=== PATIENT | female | born 1985 | race Caucasian/White ===

== ENCOUNTER 2018-11-20 20:29 | Emergency (ER) | payer OTHER ==
[2018-11-20 20:47] VITALS: BP 118/75; PULSE 99; RESP 20; TEMP 98.5
--- NOTE | 2018-11-20 21:13 | ED ---
General Adult HPI - General Chief complaint: Dental/Oral Stated complaint: tooth extracted, swelling Time Seen by Provider: 11/20/18 20:50 Source: patient, RN notes reviewed Mode of arrival: ambulatory Limitations: no limitations - History of Present Illness Initial comments: 33-year-old female presents to the emergency department for a chief complaint of dental pain. Patient states she had her tooth extracted 1.5 weeks ago. She states it has been painful since that time. Patient states she has noticed purulent drainage. She called her primary provider who sent an antibiotic to the pharmacy but the pharmacy claimed he did not receive this. She was unable to see her dentist. Patient states she presents for antibiotic. She denies any fevers or chills. She denies any difficulty opening the mouth. She denies any sublingual swelling or pain. Patient has no other complaints at this time including shortness of breath, chest pain, abdominal pain, nausea or vomiting, headache, or visual changes. - Related Data Home Medications Medication Instructions Recorded Confirmed ALPRAZolam [Xanax] 1 mg PO Q8HR PRN 10/13/16 10/13/16 Sertraline HCl [Zoloft] 50 mg PO DAILY 10/13/16 10/13/16 Previous Rx's Medication Instructions Recorded Clindamycin [Cleocin] 450 mg PO Q8H 10 Days capsule 11/20/18 Allergies Allergy/AdvReac Type Severity Reaction Status Date / Time hydromorphone HCl Allergy Rash/Hives Verified 11/20/18 20:46 [From Dilaudid] Penicillins Allergy Rash/Hives Verified 11/20/18 20:46 tramadol HCl [From Ultram] Allergy Confusion Verified 11/20/18 20:46 Review of Systems ROS Statement: Those systems with pertinent positive or pertinent negative responses have been documented in the HPI. ROS Other: All systems not noted in ROS Statement are negative. Past Medical History Past Medical History: No Reported History History of Any Multi-Drug Resistant Organisms: MRSA Date of last positivie culture/infection: 2009 MDRO Source:: buttock Additional Past Surgical History / Comment(s): right arm, pilonidal cyst Past Psychological History: No Psychological Hx Reported Smoking Status: Current every day smoker Past Alcohol Use History: Rare Past Drug Use History: Marijuana General Exam Limitations: no limitations General appearance: alert, in no apparent distress Head exam: Present: atraumatic, normocephalic, normal inspection Eye exam: Present: normal appearance, PERRL, EOMI. Absent: scleral icterus, conjunctival injection, periorbital swelling ENT exam: Present: mucous membranes moist, TM's normal bilaterally. Absent: normal oropharynx (Extraction of tooth 28 and 29 noted. Minimal edema with no drainage noted at this time) Neck exam: Present: normal inspection, full ROM. Absent: tenderness, meningismus, lymphadenopathy Respiratory exam: Present: normal lung sounds bilaterally. Absent: respiratory distress, wheezes, rales, rhonchi, stridor Cardiovascular Exam: Present: regular rate, normal rhythm, normal heart sounds. Absent: systolic murmur, diastolic murmur, rubs, gallop, clicks Neurological exam: Present: alert, oriented X3, CN II-XII intact Psychiatric exam: Present: normal affect, normal mood Course Vital Signs 11/20/18 20:44 Temperature 98.5 F Pulse Rate 99 Respiratory 20 Rate Blood Pressure 118/75 O2 Sat by Pulse 99 Oximetry Medical Decision Making - Medical Decision Making 33-year-old female presents for dental pain. This has been ongoing for the past few days. Patient states she is supposed to have an antibiotic after a tooth extraction but was unable to get the prescription. Patient states her primary was going to send over clindamycin but the pharmacy did not receive it and now the office is closed. Patient could not follow up with her dentist as they could not fit her in. On exam patient does have extractions noted of tooth 28 and 29. No significant mandibular tenderness. No sublingual swelling or tenderness. Patient is able to open the mouth and handle secretions. Vitals are within except about limits. Patient was given a clindamycin in the emergency department. She was given a prescription of this as well. She will follow up with her dentist and primary care. She will return if she has worsening symptoms. Disposition Clinical Impression: Status post tooth extraction, Tooth pain Disposition: HOME SELF-CARE Condition: Good Instructions: Toothache (ED) Additional Instructions: Please take antibiotics as directed. Please follow-up with primary care and dentist in 1-2 days. Return if you have any worsening symptoms. Prescriptions: Clindamycin [Cleocin] 450 mg PO Q8H 10 Days capsule Is patient prescribed a controlled substance at d/c from ED?: No Referrals: Ashok Sheikh DO [Primary Care Provider] - 1-2 days Time of Disposition: 21:12
[2018-11-20] MEDS ORDERED: CLINDAMYCIN 150 MG CAP PO STA (21:21)
== END 2018-11-20 21:28 | disposition home or self-care (01) ==
LOC: EC 20:29
DX: K08.89 Other specified disorders of teeth and supporting structures (principal); K08.409 Partial loss of teeth, unspecified cause, unspecified class; F17.200 Nicotine dependence, unspecified, uncomplicated; Z86.14 Personal history of Methicillin resistant Staphylococcus aureus infection; Z79.899 Other long term (current) drug therapy; Z88.5 Allergy status to narcotic agent; Z88.0 Allergy status to penicillin
CPT/HCPCS: 99282

== ENCOUNTER 2019-05-30 21:20 | Emergency (ER) | payer OTHER ==
--- NOTE | 2019-05-30 22:41 | ED ---
URI HPI - General Chief Complaint: Upper Respiratory Infection Stated Complaint: Cough Time Seen by Provider: 05/30/19 21:51 Source: patient, RN notes reviewed, old records reviewed Mode of arrival: ambulatory Limitations: no limitations - History of Present Illness Initial Comments: Patient is a 33-year-old female. Alert and oriented. No distress. She presents today with cough, and chin swelling. She states she's had history of dental work history of abscesses. She states she is a smoker. She reports cough with green phelgm. - Related Data Home Medications Medication Instructions Recorded Confirmed ALPRAZolam [Xanax] 1 mg PO Q8HR PRN 10/13/16 10/13/16 Sertraline HCl [Zoloft] 50 mg PO DAILY 10/13/16 10/13/16 Previous Rx's Medication Instructions Recorded Clindamycin [Cleocin] 450 mg PO Q8H 10 Days capsule 11/20/18 Albuterol Inhaler [Ventolin Hfa 1 - 2 puff INHALATION RT-Q6H PRN 05/30/19 Inhaler] #1 inhaler Azithromycin 250 mg PO DIRECTED #6 tablet 05/30/19 Loratadine-Pseudoeph 5-120 mg 1 each PO Q12HR #20 tab 05/30/19 [Claritin-D 12 HR] methylPREDNISolone Dose Pack 4 mg PO DIRECTED #21 package 05/30/19 [Medrol Dose Pack] methylPREDNISolone [Medrol Dose 4 mg PO DIRECTED #1 pack 05/30/19 Pack] Allergies Allergy/AdvReac Type Severity Reaction Status Date / Time hydromorphone HCl Allergy Rash/Hives Verified 05/30/19 21:41 [From Dilaudid] Penicillins Allergy Rash/Hives Verified 05/30/19 21:41 tramadol HCl [From Ultram] Allergy Confusion Verified 05/30/19 21:41 Review of Systems ROS Statement: Those systems with pertinent positive or pertinent negative responses have been documented in the HPI. ROS Other: All systems not noted in ROS Statement are negative. Past Medical History Past Medical History: No Reported History History of Any Multi-Drug Resistant Organisms: MRSA Date of last positivie culture/infection: 2009 MDRO Source:: buttock Additional Past Surgical History / Comment(s): right arm, pilonidal cyst Past Psychological History: No Psychological Hx Reported Smoking Status: Current every day smoker Past Alcohol Use History: Rare Past Drug Use History: Marijuana General Exam - General Exam Comments Initial Comments: This is a 33 year old femae, no distress. Limitations: no limitations General appearance: alert, in no apparent distress Head exam: Present: atraumatic, normocephalic, normal inspection Eye exam: Present: normal appearance, PERRL, EOMI. Absent: scleral icterus, conjunctival injection, periorbital swelling ENT exam: Present: normal exam, normal oropharynx, mucous membranes moist, other (chin swelling) Neck exam: Present: normal inspection. Absent: tenderness, meningismus, lymphadenopathy Respiratory exam: Present: normal lung sounds bilaterally. Absent: respiratory distress, wheezes, rales, rhonchi, stridor Cardiovascular Exam: Present: regular rate, normal rhythm, normal heart sounds. Absent: systolic murmur, diastolic murmur, rubs, gallop, clicks Extremities exam: Present: normal inspection, full ROM, normal capillary refill. Absent: tenderness, pedal edema, joint swelling, calf tenderness Back exam: Present: normal inspection Neurological exam: Present: alert, oriented X3, CN II-XII intact Psychiatric exam: Present: normal affect, normal mood Skin exam: Present: warm, dry, intact, normal color. Absent: rash Course Vital Signs 05/30/19 05/30/19 05/30/19 21:37 21:51 23:21 Temperature 98.1 F 97.7 F Pulse Rate 87 78 Respiratory 18 12 16 Rate Blood Pressure 111/69 101/88 O2 Sat by Pulse 100 98 Oximetry Medical Decision Making - Medical Decision Making 33 year old female for cough and chin swelling. Patient is a smoker. She had CXR showing deformity of left fourth rib and clavicle. Patient informed of results. Possible apical infiltrate. She admits to previous injury when younger. Will treat with azithromycin for bronchitis and possible pneumonia. Will DC with Rx for medrol dose pack as well. All questions answered. - Radiology Data Radiology results: report reviewed X-ray report is age-indeterminate posterior left fourth rib fracture deformity. Possible clavicle deformity. With atypical contusion or other infiltrate. Patient clinically warranted CT to further assess these findings. Disposition Clinical Impression: Bronchitis, Jaw swelling, Lymph nodes enlarged Disposition: HOME SELF-CARE Condition: Good Instructions (If sedation given, give patient instructions): Upper Respiratory Infection (ED) Additional Instructions: Patient is advised to follow-up with your primary care physician. Take medications as prescribed. Return to emergency department if any alarming signs or symptoms occur. Recommend using decongestant medications as well. Prescriptions: Azithromycin 250 mg PO DIRECTED #6 tablet Loratadine-Pseudoeph 5-120 mg [Claritin-D 12 HR] 1 each PO Q12HR #20 tab methylPREDNISolone Dose Pack [Medrol Dose Pack] 4 mg PO DIRECTED #21 package methylPREDNISolone [Medrol Dose Pack] 4 mg PO DIRECTED #1 pack Albuterol Inhaler [Ventolin Hfa Inhaler] 1 - 2 puff INHALATION RT-Q6H PRN #1 inhaler PRN Reason: Shortness Of Breath Is patient prescribed a controlled substance at d/c from ED?: No Referrals: Ashok Sheikh DO [Primary Care Provider] - 1-2 days Time of Disposition: 23:03
[2019-05-30] MEDS ORDERED: AZITHROMYCIN 500 MG TAB PO STA (23:04)
--- NOTE | 2019-05-30 23:16 | XR ---
EXAM: XR Chest, 2 Views CLINICAL HISTORY: ITS.REASON XR Reason: Pain TECHNIQUE: Frontal and lateral views of the chest. COMPARISON: No relevant prior studies available. FINDINGS: There is an age-indeterminate posterior left fourth rib fracture deformity. Question overlying calvarial deformity is well. These were not present previously. I cannot exclude a left apical contusion or other infiltrate. No clear pneumothorax. No pleural effusion. Normal cardiomediastinal contour. IMPRESSION: Age-indeterminate posterior left fourth rib fracture deformity. Possible clavicle deformity. Cannot exclude left apical contusion or other infiltrate. If clinically warranted, CT could further assess these findings.
[2019-05-30 23:22] VITALS: BP 101/88; PULSE 78; RESP 16; TEMP 97.7
== END 2019-05-30 23:22 | disposition home or self-care (01) ==
LOC: EC 21:20
DX: J40 Bronchitis, not specified as acute or chronic (principal); R59.9 Enlarged lymph nodes, unspecified; M95.4 Acquired deformity of chest and rib; F17.200 Nicotine dependence, unspecified, uncomplicated; Z79.899 Other long term (current) drug therapy; Z88.0 Allergy status to penicillin; Z88.5 Allergy status to narcotic agent
CPT/HCPCS: 71046; 99284

== ENCOUNTER 2019-06-21 20:27 | Emergency (ER) | payer OTHER ==
[2019-06-21 20:39] VITALS: BP 120/78; PULSE 82; RESP 20; TEMP 97.8
--- NOTE | 2019-06-21 21:16 | ED ---
General Adult HPI - General Chief complaint: Skin/Abscess/Foreign Body Stated complaint: Bump on chin Time Seen by Provider: 06/21/19 20:41 Source: patient Mode of arrival: ambulatory Limitations: no limitations - History of Present Illness Initial comments: Patient is a 33-year-old female presenting to emergency Department with a chief complaint of pain under the chin. Patient reports she has had multiple dental procedures done over the last 6 months. Patient reports she has developed a mass under her chin that has been coming and going for the past few months. Patient reports she has seen a dentist who suspects that it is a lymph node. Patient reports she has a scheduled ENT appointment 1.5 months from today. Patient reports pain on palpation on the chin. Patient is worried about the cosmetic outlook of the region. Patient denies any fevers, night sweats or chills. Patient denies any drooling, , dysphagia, dyspnea or changes in the voice. - Related Data Home Medications Medication Instructions Recorded Confirmed ALPRAZolam [Xanax] 1 mg PO Q8HR PRN 10/13/16 06/21/19 Sertraline HCl [Zoloft] 50 mg PO DAILY 10/13/16 06/21/19 Previous Rx's Medication Instructions Recorded Albuterol Inhaler [Ventolin Hfa 1 - 2 puff INHALATION RT-Q6H PRN 05/30/19 Inhaler] #1 inhaler Loratadine-Pseudoeph 5-120 mg 1 each PO Q12HR #20 tab 05/30/19 [Claritin-D 12 HR] Clindamycin [Cleocin] 150 mg PO Q6H #20 capsule 06/21/19 Allergies Allergy/AdvReac Type Severity Reaction Status Date / Time hydromorphone HCl Allergy Rash/Hives Verified 05/30/19 21:41 [From Dilaudid] Penicillins Allergy Rash/Hives Verified 05/30/19 21:41 tramadol HCl [From Ultram] Allergy Confusion Verified 05/30/19 21:41 Review of Systems ROS Statement: Those systems with pertinent positive or pertinent negative responses have been documented in the HPI. ROS Other: All systems not noted in ROS Statement are negative. Past Medical History Past Medical History: No Reported History History of Any Multi-Drug Resistant Organisms: MRSA Date of last positivie culture/infection: 2009 MDRO Source:: buttock Additional Past Surgical History / Comment(s): right arm, pilonidal cyst Past Psychological History: No Psychological Hx Reported Smoking Status: Current every day smoker Past Alcohol Use History: Rare Past Drug Use History: Marijuana General Exam Limitations: no limitations General appearance: alert, in no apparent distress Head exam: Present: atraumatic, normocephalic, normal inspection Eye exam: Present: normal appearance, PERRL, EOMI Pupils: Present: normal accommodation ENT exam: Present: normal exam, mucous membranes moist, TM's normal bilaterally. Absent: normal oropharynx (Medical plates on the bottom teeth. No enlarged tonsils or exudates. Uvula midline. No oral lesions noted) Neck exam: Present: normal inspection (Mild edema on the mental. No lacerations, abrasions, edema or skin discoloration), tenderness (Mental te nderness), full ROM, lymphadenopathy (Submental) Respiratory exam: Present: normal lung sounds bilaterally Cardiovascular Exam: Present: regular rate, normal rhythm, normal heart sounds Extremities exam: Present: normal inspection, full ROM Back exam: Present: normal inspection, full ROM Neurological exam: Present: alert, oriented X3 Psychiatric exam: Present: normal affect, normal mood Skin exam: Present: warm, intact, normal color Course Vital Signs 06/21/19 20:36 Temperature 97.8 F Pulse Rate 82 Respiratory 20 Rate Blood Pressure 120/78 O2 Sat by Pulse 99 Oximetry Medical Decision Making - Medical Decision Making Patient is a 33-year-old female presenting to emergency Department with a chief complaint of a pain on her chin. Based on physical examination the left ear appears to be mildly inflamed although it is difficult to determine the exact cause for the mass. X-ray of the mandible was unremarkable. Patient advised to follow-up with ENT for further management. Strict return parameters were thoroughly discussed the patient was understanding and agreeable. Case discussed with physician. Disposition Clinical Impression: Enlarged submental lymph node Disposition: HOME SELF-CARE Condition: Stable Instructions (If sedation given, give patient instructions): Lymph Node Biopsy (DC) Additional Instructions: Please follow up with either dermatology or ENT. Please return to emergency department if symptoms worsen. Please see prescribed medication as directed. Prescriptions: Clindamycin [Cleocin] 150 mg PO Q6H #20 capsule Is patient prescribed a controlled substance at d/c from ED?: No Referrals: Ashok Sheikh DO [Primary Care Provider] - 1-2 days Basil Jackson MD [STAFF PHYSICIAN] - 1-2 days Betsey Caballero MD [STAFF PHYSICIAN] - 1-2 days Time of Disposition: 23:05
--- NOTE | 2019-06-21 22:50 | XR ---
PROCEDURE: XR facial bones limited - 2V DATE AND TIME: 06/21/2019 9:54 PM CLINICAL INDICATION: PHH; Pain TECHNIQUE: AP Dave and lateral views were obtained. COMPARISON: None FINDINGS: There is no fracture or malalignment. The soft tissues are unremarkable. IMPRESSION: NO ACUTE PROCESS.
== END 2019-06-21 23:12 | disposition home or self-care (01) ==
LOC: EC 20:27
DX: R59.0 Localized enlarged lymph nodes (principal); F17.200 Nicotine dependence, unspecified, uncomplicated; Z86.14 Personal history of Methicillin resistant Staphylococcus aureus infection; Z98.890 Other specified postprocedural states; Z79.899 Other long term (current) drug therapy; Z88.5 Allergy status to narcotic agent; Z88.0 Allergy status to penicillin
CPT/HCPCS: 70140; 99283

== ENCOUNTER 2019-10-04 10:30 | Day surgery (SDC) | payer OTHER ==
[2019-10-01 12:01] VITALS: BMI 24.5
[~2019-10-04 10:30] MED LIST: DEXAMETHASONE SOD PHOSPHATE 10 MG/ML 1 ML VIAL IV ONE; HEPARIN SODIUM,PORCINE 5,000 UNIT/ML 1 ML VIAL SQ ONE; HYDROmorphone 0.5 MG/0.5 ML SYRINGE IVP PRN; LACTATED RINGERS 1,000 ML IV SCH; LIDOCAINE 1% 20 ML VIAL (10MG/ML) FOR IV START INTRADERMA PRN; ONDANSETRON 4 MG/2 ML VIAL IVP ONE; Pre Op ABX Message 1 EACH MISC MISCELLANE ONE; fentaNYL (PF) 50 MCG/ML 2 ML AMP IV PRN
[2019-10-04] MEDS ORDERED: SCOPOLAMINE 1.5MG/72HR PATCH TRANSDERM ONE (11:54)
--- NOTE | 2019-10-04 11:58 | P.GSHP ---
History of Present Illness H&P Date: 10/04/19 Chief Complaint: Skin lesion on Theresa This is a 33-year-old female has developed a chronic skin lesion on her chin. Patient does today for excision.. Past Medical History Past Medical History: Respiratory Disorder Additional Past Medical History / Comment(s): Hx bronchitis. Chin lesion currently. History of Any Multi-Drug Resistant Organisms: None Reported Date of last positivie culture/infection: 2009 MDRO Source:: buttock Additional Past Surgical History / Comment(s): ORIF Right arm/Radius, pilonidal cyst Past Anesthesia/Blood Transfusion Reactions: Motion Sickness Smoking Status: Current every day smoker - Past Family History Father Family Medical History: Cancer, CVA/TIA Medications and Allergies Home Medications Medication Instructions Recorded Confirmed Type Albuterol Inhaler [Ventolin Hfa 1 - 2 puff INHALATION RT-Q6H PRN 05/30/19 10/04/19 Rx Inhaler] #1 inhaler Buprenorphine HCl/Naloxone HCl 1 each SL TID PRN 10/01/19 10/04/19 History [Suboxone 8 mg-2 mg Sl Film] Ibuprofen [Motrin Ib] 200 mg PO Q6H PRN 10/01/19 10/04/19 History Multivitamins, Thera [Multivitamin 1 tab PO DAILY 10/01/19 10/04/19 History (formulary)] Varenicline [Chantix Continuing 1 mg PO BID 10/01/19 10/04/19 History Pack] busPIRone HCL [Buspar] 30 mg PO BID 10/01/19 10/04/19 History Allergies Allergy/AdvReac Type Severity Reaction Status Date / Time hydromorphone HCl Allergy Rash/Hives Verified 10/04/19 11:26 [From Dilaudid] Penicillins Allergy Rash/Hives Verified 10/04/19 11:26 tramadol HCl [From Ultram] Allergy Seizure Verified 10/04/19 11:26 Surgical - Exam Vital Signs Temp Pulse Resp BP Pulse Ox 98.4 F 76 16 100/51 99 10/04/19 11:24 10/04/19 11:24 10/04/19 11:24 10/04/19 11:24 10/04/19 11:24 - General well developed, well nourished, no distress - Eyes PERRL - ENT normal pinna - Neck no masses - Respiratory normal expansion - Cardiovascular Rhythm: regular - Abdomen Abdomen: soft, non tender - Integumentary 2 cm cystic skin lesion on the submental area Assessment and Plan Assessment: Skin lesion on Chin. We'll perform excision
[2019-10-04] MEDS ORDERED: LIDOCAINE 1% INJ 10MG/ML (20 ML MDV) ONE (13:01)
[2019-10-04] MEDS ORDERED: MIDAZOLAM 2 MG/2 ML VIAL ONE (13:01)
[2019-10-04] MEDS ORDERED: SUCCINYLCHOLINE CHLORIDE 100 MG/5 ML SYR IV ONE (13:01)
[2019-10-04] MEDS ORDERED: PROPOFOL 10 MG/ML 20 ML VIAL IV ONE (13:01)
[2019-10-04] MEDS ORDERED: KETAMINE 10 MG/ML 20 ML VIAL ONE (13:01)
[2019-10-04] MEDS ORDERED: BUPIVACAINE (PF) 0.25% 30 ML VIAL SQ ONE ×2 (13:30)
[2019-10-04 14:10] VITALS: TEMP 97.8
[2019-10-04 14:38] VITALS: RESP 18
[2019-10-04 14:53] VITALS: BP 115/78; PULSE 78
--- NOTE | 2019-10-06 08:57 | P.OP ---
Date of Procedure: 10/04/19 Preoperative Diagnosis: Skin lesion in the submental area Postoperative Diagnosis: Skin lesion in submental area Procedure(s) Performed: Excision of skin lesion submental area Anesthesia: ILIANA Surgeon: Danny Pritchett Estimated Blood Loss (ml): 5 Pathology: other (Skin lesion) Condition: stable Disposition: PACU Description of Procedure: Patient's placed on the operating table in the supine position. She received general anesthesia. Her chin was prepped and draped in usual sterile fashion. The patient had a 1 cm skin lesion submental area. Using a 15 blade the skin was incised and using electrocautery the subcu tissue divided. The specimens of pathology. The skin was closed using 5-0 nylon. Patient top she will was sent to recovery room in stable condition.
== END 2019-10-04 15:05 | disposition home or self-care (01) ==
LOC: OR 10:30
PROVIDERS: ATTEND Surgery
DX: L98.9 Disorder of the skin and subcutaneous tissue, unspecified (principal); K21.9 Gastro-esophageal reflux disease without esophagitis; F17.200 Nicotine dependence, unspecified, uncomplicated; Z88.0 Allergy status to penicillin; Z88.5 Allergy status to narcotic agent; Z88.6 Allergy status to analgesic agent; Z79.899 Other long term (current) drug therapy; Z98.890 Other specified postprocedural states; Z87.09 Personal history of other diseases of the respiratory system; Z82.49 Family history of ischemic heart disease and other diseases of the circulatory system; Z80.9 Family history of malignant neoplasm, unspecified
CPT/HCPCS: 81025; 88304; 11441; J2250; J1644; J1100; J0690; J2405; J2001; J0330; J2704

== ENCOUNTER 2019-10-10 20:37 | Emergency (ER) | payer OTHER ==
[2019-10-10 20:42] VITALS: BP 95/66; PULSE 76; RESP 18; TEMP 98.2
--- NOTE | 2019-10-10 20:53 | ED ---
Lower Extremity Injury HPI - General Chief Complaint: Extremity Injury, Lower Stated Complaint: Knee Pain Time Seen by Provider: 10/10/19 20:45 Source: patient Mode of arrival: ambulatory Limitations: no limitations - History of Present Illness Initial Comments: 33-year-old female patient presents to the emergency department today for evaluation of right knee pain and swelling. Patient states 2 days ago she was walking when she felt a pop in the knee. States her last 2 days she has developed swelling in the knee which is making it difficult for her to walk. She is reporting increased pain on a daily basis. She denies any numbness or tingling in the leg but states she does feel a burning sensation to the back of the knee. She denies any history of knee injury. Patient denies any headache, neck pain, back pain, chest pain, shortness of breath, dizziness, weakness, abdominal pain, nausea, vomiting, or difficulties with bowel movements or ur ination. - Related Data Home Medications Medication Instructions Recorded Confirmed Buprenorphine HCl/Naloxone HCl 1 each SL TID PRN 10/01/19 10/04/19 [Suboxone 8 mg-2 mg Sl Film] Ibuprofen [Motrin Ib] 200 mg PO Q6H PRN 10/01/19 10/04/19 Multivitamins, Thera [Multivitamin 1 tab PO DAILY 10/01/19 10/04/19 (formulary)] Varenicline [Chantix Continuing 1 mg PO BID 10/01/19 10/04/19 Pack] busPIRone HCL [Buspar] 30 mg PO BID 10/01/19 10/04/19 Previous Rx's Medication Instructions Recorded Albuterol Inhaler [Ventolin Hfa 1 - 2 puff INHALATION RT-Q6H PRN 05/30/19 Inhaler] #1 inhaler Ibuprofen [Motrin] 600 mg PO Q8HR PRN #30 tab 10/10/19 Allergies Allergy/AdvReac Type Severity Reaction Status Date / Time hydromorphone HCl Allergy Rash/Hives Verified 10/10/19 20:42 [From Dilaudid] Penicillins Allergy Rash/Hives Verified 10/10/19 20:42 tramadol HCl [From Ultram] Allergy Seizure Verified 10/10/19 20:42 Review of Systems ROS Statement: Those systems with pertinent positive or pertinent negative responses have been documented in the HPI. ROS Other: All systems not noted in ROS Statement are negative. Past Medical History Past Medical History: Respiratory Disorder Additional Past Medical History / Comment(s): Hx bronchitis. Chin lesion currently. History of Any Multi-Drug Resistant Organisms: None Reported Date of last positivie culture/infection: 2009 MDRO Source:: buttock Additional Past Surgical History / Comment(s): ORIF Right arm/Radius, pilonidal cyst Past Anesthesia/Blood Transfusion Reactions: Motion Sickness Past Psychological History: Anxiety, Depression Smoking Status: Current every day smoker - Past Family History Father Family Medical History: Cancer, CVA/TIA General Exam Limitations: no limitations General appearance: alert, in no apparent distress, other (This is a well- developed, well-nourished adult female patient in no acute distress. Vital signs upon presentation are temperature 98.2F, pulse 76, respirations 18, blood pressure 95/66, pulse ox 100% on room air.) Eye exam: Present: normal appearance, PERRL, EOMI. Absent: scleral icterus, conjunctival injection, periorbital swelling ENT exam: Present: normal exam, normal oropharynx, mucous membranes moist Respiratory exam: Present: normal lung sounds bilaterally. Absent: respiratory distress, wheezes, rales, rhonchi, stridor Cardiovascular Exam: Present: regular rate, normal rhythm, normal heart sounds. Absent: systolic murmur, diastolic murmur, rubs, gallop, clicks Extremities exam: Present: full ROM, tenderness (To the posterior knee), normal capillary refill, other (Skin to the right leg is pink, warm, and dry. Cap refills less than 3 seconds. Pedal posttibial pulses are 2+ and equal bilate rally. There is soft tissue swelling noted on the right knee. No pain with valgus or varus maneuvers. No joint instability). Absent: normal inspection, pedal edema, joint swelling, calf tenderness Neurological exam: Present: alert, oriented X3, CN II-XII intact Psychiatric exam: Present: normal affect, normal mood Skin exam: Present: warm, dry, intact, normal color. Absent: rash Course Vital Signs 10/10/19 20:38 Temperature 98.2 F Pulse Rate 76 Respiratory 18 Rate Blood Pressure 95/66 O2 Sat by Pulse 100 Oximetry Medical Decision Making - Medical Decision Making 33-year-old female patient presents to the emergency department today for evaluation of right knee pain and swelling. Physical examination did reveal soft tissue swelling surrounding the right knee. There is no laxity or pain with valgus or varus maneuvers. X-ray was obtained and did show possible joint effusion. Patient was placed in an Gordy wrap. Given ibuprofen. She'll be instructed follow up with orthopedics if her symptoms don't improve over the next week. Return parameters discussed in detail. She verbalizes understanding and agrees with this plan. - Radiology Data Radiology results: report reviewed, image reviewed 3 views of the right knee are obtained. Report was reviewed in its entirety. Impression by Dr. German shows no fracture or dislocation. Possible joint eff usion. Disposition Clinical Impression: Effusion of right knee joint Disposition: HOME SELF-CARE Condition: Good Instructions (If sedation given, give patient instructions): Swollen Knee Joint (ED), Knee Pain (ED) Additional Instructions: Keep gordy wrap in place for comfort and support. Take tylenol and motrin for pain control. If symptoms persist follow up with the animal control specialist. Follow- up with your primary care physician for recheck in 1-2 days. Return to the emergency department immediately for any new, worsening, or concerning symptoms. Prescriptions: Ibuprofen [Motrin] 600 mg PO Q8HR PRN #30 tab PRN Reason: Pain Is patient prescribed a controlled substance at d/c from ED?: No Referrals: Julio Lua MD [Primary Care Provider] - 1-2 days Time of Disposition: 21:25
--- NOTE | 2019-10-10 21:16 | XR ---
Right knee HISTORY: Pain and swelling 3 views the right knee Bone mineralization, joint spaces and alignment are maintained. Suprapatellar increased attenuation n oted. IMPRESSION: No fracture or dislocation. Possible joint effusion.
== END 2019-10-10 21:31 | disposition home or self-care (01) ==
LOC: EC 20:37
DX: M25.461 Effusion, right knee (principal); F17.200 Nicotine dependence, unspecified, uncomplicated; F41.9 Anxiety disorder, unspecified; F32.9 Major depressive disorder, single episode, unspecified; Z79.899 Other long term (current) drug therapy; Z88.0 Allergy status to penicillin; Z88.5 Allergy status to narcotic agent
CPT/HCPCS: 99283

== ENCOUNTER → 2019-11-08 | Outpatient (CLI) | payer OTHER ==
--- NOTE | 2019-11-09 04:58 | MR ---
EXAMINATION TYPE: MR neck wo/w con DATE OF EXAM: 11/08/2019 COMPARISON: None HISTORY: non pressure chronic ulcer of skin CONTRAST: Standard multiplanar, multisequence MRI departmental protocol utilizing 7 mL intravenous Gadavist katia olinium contrast. Cervical vertebra have normal spacing and alignment. Cervical spinal cord appears normal. Prevertebra l soft tissues appear normal. There is no evidence of superior mediastinal adenopathy. Thyroid gland appears normal. Trachea appears normal. Submandibular salivary glands appear normal. Parotid glands a re symmetric. There is no significant cervical adenopathy. There is a marker at the inferior aspect o f the anterior mandible in the area of concern. There is no pathologic fluid collection. There is no evidence of an abscess. There are submandibular small lymph nodes that measure up to 7 mm. Mandible a ppears intact. I see no bony destructive process. There is no evidence of sinusitis. Contrast images show no pathologic enhancement. Epiglottis is normal. Tonsils appear normal. Sella turcica appears no rmal. IMPRESSION: Negative MR scan of the neck. No evidence of an abscess or other pathologic fluid collection.
== END | disposition home or self-care (01) ==
LOC: RADMRIMAIN 12:48
PROVIDERS: ATTEND Thoracic Surgery (Cardiothoracic Vascular Surgery)
DX: L98.492 Non-pressure chronic ulcer of skin of other sites with fat layer exposed (principal)
CPT/HCPCS: 70543; A9585

== ENCOUNTER → 2019-11-25 | Outpatient (CLI) | payer OTHER ==
--- NOTE | 2019-11-25 14:32 | MR ---
EXAMINATION TYPE: MR knee RT wo con DATE OF EXAM: 11/25/2019 COMPARISON: Right knee x-rays October 10, 2019 HISTORY: R knee pain and joint effusion per order TECHNIQUE: Multiplanar, multisequence images of the knee is performed without IV contrast. FINDINGS: MEDIAL MENISCUS: Some vague signal posterior horn does not extend to articular surface. Cannot exclud e intrasubstance tear. Anterior horn is intact. LATERAL MENISCUS: Anterior and posterior horns are intact without tear. CRUCIATE LIGAMENTS: The anterior and posterior cruciate ligaments are intact and unremarkable. COLLATERAL LIGAMENTS: The medial collateral ligament and lateral collateral ligament complex are inta ct and unremarkable. EXTENSOR MECHANISM: Visualized quadriceps and patellar tendons are intact. EFFUSION: There is now small suprapatellar joint effusion. Joint effusion has linear low T1 and T2 si gnal particularly along the superior aspect suggesting prior blood product or hemosiderin deposition. POPLITEAL CYST: No popliteal/bruner cyst. TRICOMPARTMENT SPACES: Tricompartment joint spaces are preserved. No significant spurring. CARTILAGE: Tricompartmental articular cartilage is maintained. No significant chondromalacia patella. BONE MARROW SIGNAL: 5 mm focus of low T1 and T2 signal distal femur laterally coronal image 17 corres ponds to sclerotic focus presumed benign bone island. There is some subchondral cystic change central ly posterior aspect tibial plateau near PCL insertion. OTHER: No additional significant abnormality is appreciated. IMPRESSION: No full-thickness meniscal or ligamentous tear is seen. There is small suprapatellar flui d collection diminished in size from x-ray likely reflecting resolving hemarthrosis.
== END | disposition home or self-care (01) ==
LOC: RADMRIMAIN 13:51
PROVIDERS: ATTEND Physician Assistant
DX: M25.561 Pain in right knee (principal); M25.461 Effusion, right knee

== ENCOUNTER → 2021-09-11 | Outpatient (CLI) | payer OTHER ==
[2021-09-11 18:52] LABS: HCT 40.1 % (37.2-46.3); HGB 12.8 g/dL (12.0-15.0); MCH 29.8 pg (27.0-32.0); MCHC 31.9 g/dL (32.0-37.0); MCV 93.5 fL (80.0-97.0); Mean Platelet Volume 10.9 fL (9.5-12.2); Platelet Count 261 X 10*3/uL (140-440); RBC 4.29 X 10*6/uL (4.10-5.20); RDW 14.5 % (11.5-14.5); WBC 6.91 X 10*3/uL (4.50-10.00)
[2021-09-11 20:29] LABS: ALT 17 U/L (8-44); AST 20 U/L (13-35); African American GFR (CKD) 97.4 (60.0-200.0); Albumin 4.5 g/dL (3.8-4.9); Albumin/Globulin Ratio 1.96 (1.60-3.17); Alkaline Phosphatase 76 U/L (41-126); Bilirubin, Conjugated <0.20 mg/dL (0.20-0.40); Carbon Dioxide 23.1 mmol/L (21.6-31.8); Chloride 103 mmol/L (96-109); Globulin 2.3 g/dL (1.6-3.3); Glucose 144 mg/dL (70-110); Potassium 4.5 mmol/L (3.5-5.5); Sodium 137 mmol/L (135-145); Total Protein 6.8 g/dL (6.2-8.2)
[2021-09-11 20:51] LABS: T4, Free (Free Thyroxine) 0.68 ng/dL (0.800-1.800)
== END | disposition home or self-care (01) ==
LOC: LABWHC1 10:50
PROVIDERS: ATTEND Internal Medicine
DX: M67.819 Other specified disorders of synovium and tendon, unspecified shoulder (principal); R53.83 Other fatigue
CPT/HCPCS: 36415; 80051; 80076; 82550; 82565; 82607; 82947; 83036; 84439; 84443; 84481; 84520; 85027

== ENCOUNTER → 2021-12-26 | Outpatient (CLI) | payer OTHER ==
[2021-12-26 18:42] LABS: T4, Free (Free Thyroxine) 1.02 ng/dL (0.800-1.800)
== END ==
LOC: LABWHC1 11:04
PROVIDERS: ATTEND Internal Medicine
DX: E03.9 Hypothyroidism, unspecified (principal)
CPT/HCPCS: 36415; 84439; 84443; 84481; 86376; 86800

== ENCOUNTER → 2025-03-08 | Outpatient (CLI) | payer OTHER ==
--- NOTE | 2025-03-08 09:27 | MM ---
Reason for Exam: Clinical finding. Baseline mammogram. Indicated Problems: Lump or thickening of the left side for 3 Month(s). Patient History: Menarche at age 15. First Full-Term at age 27. Last menstrual period: 03/08/2025 Risk Values: Sue 5 year model risk: 0.4%. NCI Lifetime model risk: 11.2%. Prior Study Comparison: Patient's first Mammogram. No prior studies available for comparison. Tissue Density: The breasts are heterogeneously dense, which may obscure small masses. Findings: Analyzed By CAD. No distinct mass or distortion. Ultrasound recommended at the site of clinical concern left breast. No suspicious microcalcifications. Overall Assessment: Incomplete: need additional imaging evaluation, BI-RAD 0 Management: Diagnostic Breast Ultrasound of the left breast. . Results were given to the patient verbally at the time of exam. Patient should continue monthly self-breast exams. A clinical breast exam by your physician is recommended on an annual basis. This exam should not preclude additional follow-up of suspicious palpable abnormalities. Note on Sue scores and lifetime risk: 1. A Sue score greater than 3% is considered moderate risk. If this is the case, consider specialist referral to assess eligibility for a risk reducing agent. 2. If overall lifetime risk for the development of breast cancer is 20% or higher, the patient may qualify for future screening with alternating mammogram and breast MRI. [facility], , 03/08/2025 9:23 AM. Electronically signed and approved by: Rl Rivera M.D. Radiologis
--- NOTE | 2025-03-08 10:11 | USB ---
Reason for Exam: Clinical finding. Patient History: Menarche at age 15. First Full-Term at age 27. Risk Values: Sue 5 year model risk: 0.4%. NCI Lifetime model risk: 11.2%. Findings: The area of palpable concern of the left breast, the axilla of the left breast and the retroareolar of the left breast were scanned. No solid or cystic masses are identified.. Overall Assessment: Negative, BI-RAD 1 Management: Screening Mammogram of both breasts at age 42. A clinical breast exam by your physician is recommended on an annual basis and results should be correlated with mammographic findings. This exam should not preclude additional follow-up of suspicious palpable abnormalities. Results were given to the patient verbally at the time of exam. [facility], , 03/08/2025 9:25 AM. Electronically signed and approved by: Rl Rivera M.D. Radiologis
== END | disposition home or self-care (01) ==
LOC: RADMAMWWP 08:45
PROVIDERS: ATTEND Family Medicine
DX: R92.333 Mammographic heterogeneous density, bilateral breasts (principal); N63.20 Unspecified lump in the left breast, unspecified quadrant
CPT/HCPCS: 77062; 77066